=== PATIENT | female | born 1975 | race African-American/Black ===

== ENCOUNTER 2025-03-29 23:09 | Emergency (ER) | payer MEDICAID, SELFPAY ==
[2025-03-29 23:24] VITALS: BP 149/82; PULSE 116; TEMP 36.9; O2SAT 100
--- NOTE | 2025-03-29 23:45 | ED.URI1 ---
HPI - URI/Sore Throat General Chief Complaint: Upper Respiratory Infection Stated Complaint: SOB Time Seen by Provider: 03/29/25 23:41 Source: patient Limitations: no limitations History of Present Illness HPI Narrative: history of asthma and pulmonary emboli. Takes xarelto. Has chronic cough and diabetes. Tonight short of breath and felt like it would not clear up. Did use he inhaler before coming and now is feeling better. Still has cough. No fever or nausea Related Data Home Medications ?Medication ?Instructions ?Recorded ?Confirmed budesonide-formoterol HFA 80 inhalation 03/29/25 mcg-4.5 mcg/actuation aerosol inhaler dulaglutide 0.75 mg/0.5 mL mg subcut 03/29/25 subcutaneous pen injector ([facility]) glipizide 10 mg tablet mg 03/29/25 losartan 50 mg tablet mg 03/29/25 Allergies Allergy/AdvReac Type Severity Reaction Status Date / Time sulfamethoxazole (From AdvReac Mild Unknown Verified 03/29/25 23:22 Bactrim) trimethoprim (From Bactrim) AdvReac Mild Unknown Verified 03/29/25 23:22 Review of Systems ROS Status of ROS 10 or more systems reviewed and unremarkable except as noted in history and below PFSH PFSH Social History Little interest or pleasure in doing things: not at all Feeling down, depressed, or hopeless: not at all Exam Constitutional Vital Signs, click to edit/add: Last Vital Signs Temp 98.4 F 03/29/25 23:24 Pulse 116 H 03/29/25 23:24 Resp 18 03/29/25 23:24 BP 149/82 H 03/29/25 23:24 Pulse Ox 100 03/29/25 23:24 O2 Del Method Room Air 03/29/25 23:24 Common normals: no apparent distress, average body habitus, oriented x3, no limitations, healthy appearing, alert and well nourished [facility] Common normals: normocephalic and head/scalp atraumatic Respiratory Common normals: normal respiratory effort, no retractions, no use of accessory muscles and clear to auscultation bilaterally Cardio Common normals: regular rate, regular rhythm, S1 normal heart sound and S2 normal heart sound GI Common normals: Normal to inspection, nondistended, normoactive bowel sounds present, soft to palpation and non-tender Extremity Common normals: normal to inspection and full ROM Neuro Common normals: oriented x3, CN's II-XII intact bilaterally, moves all extremities and no focal motor deficits Psych Appearance: grossly normal Course Vital Signs Vital signs: Vital Signs Temperature 98.4 F 03/29/25 23:24 Pulse Rate 116 H 03/29/25 23:24 Respiratory Rate 18 03/29/25 23:24 Blood Pressure 149/82 H 03/29/25 23:24 Pulse Oximetry 100 03/29/25 23:24 Oxygen Delivery Method Room Air 03/29/25 23:24 Temperature 98.4 F 03/29/25 23:24 Pulse Rate 116 H 03/29/25 23:24 Respiratory Rate 18 03/29/25 23:24 Blood Pressure 149/82 H 03/29/25 23:24 Pulse Oximetry 100 03/29/25 23:24 Oxygen Delivery Method Room Air 03/29/25 23:24 MDM - URI/Sore Throat MDM Narrative Medical decision making narrative: patient presents with acute shortness of breath, likely acute asthma flare. Kendall like her breathing was not going to improve despite use of her inhaler. By the time she presented to the ED she was breathing easier and not in distress. Lungs clear with diminished breath sounds. Would cough with deep breath. Patient informed of the workup plan to include cxray and labs. She however stated she was not able to stay because of an emergecy at home and signed out AMA Discharge Plan Discharge Stand Alone Forms: Portal Instructions Chief Complaint: Upper Respiratory Infection Clinical Impression: Acute asthma flare Patient Disposition: Left Against Medical Advice Prescriptions / Home Meds: No Action losartan 50 mg tablet glipizide 10 mg tablet budesonide-formoterol 80-4.5 mcg/actuation HFA aerosol inhaler INHALATION Trulicity 0.75 mg/0.5 mL pen injector SUBCUT Print Language: Angolan Referrals: Physician,Non-Staff, MD [Primary Care Provider] - 1 week
== END 2025-03-30 00:44 | disposition left against medical advice (07) ==
PROVIDERS: Emergency Provider Internal Medicine
DX: J45.909 Unspecified asthma, uncomplicated (principal); Z53.29 Procedure and treatment not carried out because of patient's decision for other reasons; Z86.711 Personal history of pulmonary embolism; Z79.01 Long term (current) use of anticoagulants; E11.9 Type 2 diabetes mellitus without complications; R05.3 Chronic cough; Z79.84 Long term (current) use of oral hypoglycemic drugs; Z79.85 Long-term (current) use of injectable non-insulin antidiabetic drugs; R06.02 Shortness of breath
CPT/HCPCS: 99281